=== PATIENT | male | born 1995 | race Caucasian/White ===

== ENCOUNTER 2017-05-12 19:05 | Emergency (ER) | payer OTHER ==
[~2017-05-12] VITALS: Ht 177.8 cm; Wt 88.9 kg
[~2017-05-12 19:05] MED LIST: ZITHROMAX200 MG/51 PO
--- NOTE | 2017-05-12 20:39 | ED GI/GU/ABDOMINAL COMPLAINT ---
History of Present Illness General Chief Complaint: Abdominal Pain/Flank Pain Stated Complaint: PT IS HAVING ABDOMINAL PAIN FOR 2WKDS Source: patient Exam Limitations: no limitations Vital Signs & Intake/Output Vital Signs & Intake/Output Vital Signs Date Time Temp Pulse Resp B/P B/P Pulse O2 O2 Flow FiO2 Mean Ox Delivery Rate 05/12 1926 99.9 73 138/82 98 Allergies Coded Allergies: MDX - Amoxicillin (AMOXICILLIN) (HIVES 02/08/15) Reconcile Medications Hyoscyamine (Levsin) 0.125 MG TABLET 1 TAB PO Q4 PRN ABDOMINAL SPASMS Ondansetron (Zofran Odt) 4 MG TAB.RAPDIS 1 TAB SL TID PRN NAUSEA Triage Note: PT PRESENTS TO THE ER C/O OF ABD PAIN 4/10. PT STATES THAT THIS STARTED 2 WEEKS AGO AND THAT THE PAIN CAN REACH 7/10. PT STATES THAT HE HAS BEEN NAUSEOUS WITH EPISODES OF VOMITTING. LAST BM 2 HOURS AGO. PT STATES THAT THE PAIN IS LOCATED IN MID ABD REGION. Triage Nurses Notes Reviewed? yes Onset: Gradual Duration: week(s): (2) Timing: no prior history Quality/Severity: cramping Severity Numbers: 6 Location: generalized abdomen Radiation: no radiation Activities at Onset: none Prior Abdominal Problems: none Past Sexual History: Unobtainable at this time No Modifying Factors: none HPI: Patient is a 21-year-old male presenting to the emergency department with chief complaint of generalized abdominal comfort, cramping and nausea and vomiting that then intermittent over the past 2 weeks. Patient does admit that I week prior to onset of symptoms patient is trying to change his diet, eating less fast FOOD AND MORE whole foods. Denies any diarrhea. Last bowel movement was about 2 hours prior to arrival. Mom does report the patient reported he had difficulty moving his bowels over the past several days the patient is denying this. Patient reports episode of emesis 3-4 times over the past couple weeks. No change with eating. Denies fevers or chills. No sick contacts. No recent travel. Has not taken anything [id number] to help with symptoms. (Oriana REIS,Janee) Past History Travel History Traveled to [place] past 21 day No Medical History Any Pertinent Medical History? see below for history Neurological: NONE EENT: NONE Cardiovascular: NONE Respiratory: NONE Gastrointestinal: NONE Hepatic: NONE Renal: NONE Musculoskeletal: NONE Psychiatric: NONE Endocrine: NONE Surgical History Surgical History: N Psychosocial History What is your primary language Czech Tobacco Use: Never used Family History Hx Contributory? No (Janee Christina) Review of Systems Review of Systems Constitutional: Reports: no symptoms. Comments Review of systems: See HPI, All other systems negative. Constitutional, no chills fever or weight loss HEENT: No visual changes no sore throat no congestion Cardiovascular: No chest pain ,palpitation , orthopnea or ankle swelling Skin, no jaundice no rashes Respiratory: No dyspnea cough sputum or hemoptysis GI: No diarrhea : No dysuria No hematuria Muscle skeletal: no back pain, no neck pain, Neurologic: No numbness no confusion, no headaches Psych: No stress anxiety or depression,. Heme/endocrine: No bruising no bleeding no polyuria or polydipsia Immunology: No splenectomy or history of AIDS, up-to-date with immunizations (Janee Christina) Physical Exam Physical Exam General Appearance: well developed/nourished, no apparent distress, alert, awake , comfortable Gastrointestinal: normal bowel sounds, soft, tenderness Comments: Well-developed well-nourished person in no acute distress HEENT: Pupils equally round and reactive to light and accommodation. Nose is atraumatic. Neck: NORMAL INSPECTION Back: Nontender, no CVA tenderness. Cardiovascular: Regular rate and rhythms no murmurs rubs or gallops, normal JVP Respiratory: Chest nontender. No respiratory distress.breath sounds clear to auscultation bilaterally Abdomen: Soft, mild diffuse tenderness to palpation more localized in the lower quadrants bilaterally, no rebound or guarding, nondistended, no appreciable organomegaly. Normal bowel sounds. No ascites. Negative obturator sign. Extremity: No edema Neuro: Alert oriented x3 Skin: No appreciable rash on exposed skin, skin is warm and dry. Psych: Mood and affect is normal, memory and judgment is normal. Core Measures ACS in differential dx? No Sepsis Present: No Sepsis Focused Exam Completed? No (Janee Christina) Progress Differential Diagnosis: GASTRITIS, PANCREATITIS, NONSPECIFIC COLITIS, CONSTIPATION, BILIARY COLIC Plan of Care: Orders Procedure Date/time Status URINALYSIS 05/12 2025 Complete LIPASE 05/12 2025 Complete COMPREHENSIVE METABOLIC PANEL 05/12 2025 Complete CBC WITHOUT DIFFERENTIAL 05/12 2025 Complete AMYLASE 05/12 2025 Complete Laboratory Tests 05/12/17 2100: Urine Color YEL, Urine Clarity CLEAR, Urine pH 6.0, Ur Specific [place] 1.025, Urine Protein NEG, Urine Ketones NEG, Urine Nitrite NEG, Urine Bilirubin NEG, Urine Urobilinogen 0.2, Ur Leukocyte Esterase NEG, Ur Microscopic EXAM NOT REQUIRED, Urine Hemoglobin NEG, Urine Glucose NEG 05/12/17 2030: Anion Gap 16, Estimated GFR > 60, BUN/Creatinine Ratio 8.8, Glucose 94, Calcium 10.4 H, Total Bilirubin 0.7, AST 27, ALT 70, Alkaline Phosphatase 58, Total Protein 8.6 H, Albumin 5.1 H, Globulin 3.5, Albumin/Globulin Ratio 1.5, Amylase 46, Lipase 54, CBC w Diff NO MAN DIFF REQ, RBC 5.89, MCV 82.0, MCH 26.9 L, MCHC 32.8 L, RDW 14.4, MPV 8.0, Gran % 67.3, Lymphocytes % 25.1, Monocytes % 5.9, Eosinophils % 1.1, Basophils % 0.6, Absolute Granulocytes 6.1, Absolute Lymphocytes 2.3, Absolute Monocytes 0.5, Absolute Eosinophils 0.1, Absolute Basophils 0.1 Initial ED EKG: none Comments: 05/12/2017 10:09:50 PM patient feeling much improved after IV Toradol, IV Zofran. Patient on has pain. Abdomen is soft. Informed of lab work results. No indication for imaging at this time. Patient will follow up with janiya. This could likely be related to recent diet change. Patient started on Levsin and Zofran for symptomatic treatment. Educated on signs and symptoms to return. (Oriana REIS,Janee) Departure Departure Time of Disposition: 2200 Disposition: HOME OR SELF CARE Condition: Stable Clinical Impression Primary Impression: Abdominal pain Secondary Impressions: Nausea & vomiting Qualifiers: Vomiting type: unspecified Vomiting Intractability: unspecified Qualified Code: R11.2 - Nausea with vomiting, unspecified Referrals: Robert TALAVERA,Mayco Price (PCP/Family) Aparna TALAVERA,Basil Cobb Additional Instructions: Follow-up with gastroenterology if symptoms persist. Increase fluids. Eat a well-balanced diet. Take Levsin and Zofran as prescribed up with abdominal spasms and nausea. Return for any worsening symptoms or concerns. Departure Forms: Customer Survey D/C INS-APPENDICITIS EXCLUSION General Discharge Information Prescriptions: Current Visit Scripts Hyoscyamine (Levsin) 1 TAB PO Q4 PRN ABDOMINAL SPASMS #20 TAB Ondansetron (Zofran Odt) 1 TAB SL TID PRN NAUSEA #10 TAB (Janee Christina) PA/CURRENCY COUNTER Co-Sign Statement Statement: ED Attending supervision documentation- [] I saw and evaluated the patient. I have also reviewed all the pertinent lab results and diagnostic results. I agree with the findings and the plan of care as documented in the PA's/CURRENCY COUNTER's documentation. [X] I have reviewed the ED Record and agree with the PA's/CURRENCY COUNTER's documentation. [] Additions or exceptions (if any) to the PAs/CURRENCY COUNTER's note and plan are summarized below: [] (Richy Vences DO
[2017-05-12 20:41] LABS: ABSOLUTE BASOPHIL COUNT 0.1 /CUMM (0.0-0.2); ABSOLUTE EOSINOPHIL COUNT 0.1 /CUMM (0.0-0.7); ABSOLUTE GRANULOCYTE CT 6.1 /CUMM (1.4-6.5); ABSOLUTE LYMPH COUNT 2.3 /CUMM (1.2-3.4); ABSOLUTE MONOCYTE COUNT 0.5 /CUMM (0.10-0.60); BASOPHIL % 0.6 % (0.0-2.0); EOSINOPHIL % 1.1 % (0-5); GRANULOCYTE % 67.3 % (42.2-75.2); HEMATOCRIT 48.3 % (42-52); MEAN CORPUSCULAR HGB 26.9 PG (27.0-31.0); MEAN CORPUSCULAR HGB CONC 32.8 G/DL (33.0-37.0); PLATELET COUNT 319 /CUMM (130-400); RBC DISTRIBUTION WIDTH 14.4 % (11.5-14.5); RED BLOOD CELL CT 5.89 /CUMM (4.70-6.10)
[2017-05-12] MEDS ORDERED: LEVSIN0.125 M1 PO (22:02)
[2017-05-12] MEDS ORDERED: ZOFRAN ODT4 M1 SL (22:02)
[2017-05-12 22:25] VITALS: BP 124/78
== END 2017-05-12 22:26 ==
LOC: ERH 19:05
PROVIDERS: Physician Assistant
DX: R10.84 Generalized abdominal pain (principal); R11.2 Nausea with vomiting, unspecified
CPT/HCPCS: 81003; 96361; 96374; 96375; J1885; J2405

== ENCOUNTER 2017-05-15 17:45 | Emergency (ER) | payer OTHER ==
[~2017-05-15] VITALS: Ht 177.8 cm; Wt 86.2 kg
[~2017-05-15 17:45] MED LIST changes: +LEVSIN0.125 M1 PO; +ZOFRAN ODT4 M1 SL
--- NOTE | 2017-05-15 18:07 | ED GI/GU/ABDOMINAL COMPLAINT ---
History of Present Illness General Chief Complaint: Abdominal Pain/Flank Pain Stated Complaint: ABD PAIN, +N/V Source: patient, family, old records Exam Limitations: no limitations Vital Signs & Intake/Output Vital Signs & Intake/Output Vital Signs Date Time Temp Pulse Resp B/P B/P Pulse O2 O2 Flow FiO2 Mean Ox Delivery Rate 05/16 1955 78 16 117/74 96 Room Air 05/15 1911 98 Room Air 05/15 1749 98.6 84 18 156/81 98 Room Air ED Intake and Output 05/16 0000 05/15 1200 Intake Total 0 Output Total Balance 0 Intake, IV 0 Patient 190 lb Weight Weight Reported by Patient Measurement Method Allergies Coded Allergies: MDX - Amoxicillin (AMOXICILLIN) (HIVES 02/08/15) Reconcile Medications Hyoscyamine (Levsin) 0.125 MG TABLET 1 TAB PO Q4 PRN ABDOMINAL SPASMS Ondansetron (Zofran Odt) 4 MG TAB.RAPDIS 1 TAB SL TID PRN NAUSEA Sucralfate (Carafate) 1 GRAM/10 ML ORAL.SUSP 10 ML PO TID GASTRITIS 1 hour before food and bedtime Triage Note: 21 YO MALE TO TRIAGE C/O R SIDED ABD/FLANK PAIN AND +VOMTIING. STATES HE WAS SEEN HERE THE OTHER DAY AND SENT HOME WITH SCRIPTS BUT STATES HE IS NO BETTER. DENIES URIANRY S/S. Triage Nurses Notes Reviewed? yes Onset: Gradual Duration: x 1 month Timing: recent history Quality/Severity: moderate (aching) Severity Numbers: 6 Location: generalized abdomen, right upper quadrant Radiation: no radiation Activities at Onset: none No Modifying Factors: none Associated Symptoms: denies HPI: 21-year-old male with no medical history presents to the ER with his mom for evaluation complaining of persistent diffuse however more localized to the left upper and right upper quadrant abdominal pain for the past month associated with intermittent nausea and vomiting. No hematemesis no melena. He denies fever chills. He was seen in this ER for the same pain 3 days ago he was sent home with levsin and Zofran which she states helped for a day however the symptoms returned. No history of abdominal surgeries in the past. No urinary complaints. He does report a recent change in his diet his last bowel movement was today and normal. No black or bloody stools no recent decrease in his appetite. Symptoms are not worse with eating or drinking. He does not smoke (Kareem Parisi) Past History Travel History Traveled to [place] past 21 day No Medical History Any Pertinent Medical History? none Neurological: NONE EENT: NONE Cardiovascular: NONE Respiratory: NONE Gastrointestinal: NONE Hepatic: NONE Renal: NONE Musculoskeletal: NONE Psychiatric: NONE Endocrine: NONE Surgical History Surgical History: N Psychosocial History What is your primary language Faroese Tobacco Use: Never used Family History Hx Contributory? No (Kareem Parisi) Review of Systems Review of Systems Constitutional: Reports: see HPI. Comments Review of systems: See HPI, All other systems negative. Constitutional, no chills no fever, no malaise HEENT: no sore throat no congestion Cardiovascular: No chest pain n Skin: no rashes, no change in skin Respiratory: No dyspnea no cough no sputum no hemoptysis GI: see hpi : No dysuria Muscle skeletal: No joint pain, no back pain Neurologic: , no headache Heme/endocrine: No bruising Immunology: No lymphadenopathy (Kareem Parisi) Physical Exam Physical Exam General Appearance: well developed/nourished, no apparent distress, alert Gastrointestinal: soft, tenderness Comments: Well-developed well-nourished person in no acute distress HEENT: Normal EENT exam; PERRL, EOMI, HEAD is atraumatic. moist mucous membranes. Neck: Supple, normal range of motion Back: Nontender, no CVA tenderness. Full range of motion Cardiovascular: Regular rate and rhythms no murmurs Respiratory: No respiratory distress. Patient speaking in full complete sentences. Breath sounds clear to auscultation bilaterally: NO W/R/R Abdomen: Soft, diffuse tenderness, negative Dent sign nondistended, no appreciable organomegaly. Normal bowel sounds. No rebound/guarding, No ascites. Extremity: No edema, full range of motion of extremities, Neuro: Alert oriented x3, motor sensory normal. There were no obvious focal neurologic abnormalities. Skin: No appreciable rash on exposed skin, skin is warm and dry. No jaundice no diaphoresis Psych: Mood and affect is normal, memory and judgment is normal. Core Measures ACS in differential dx? No Sepsis Present: No Sepsis Focused Exam Completed? No (Kareem Parisi) Progress Differential Diagnosis: appendicitis, biliary colic, bowel obstruction, colon cancer, diverticulitis, gastritis, hepatitis, inflamm bowel dis, pancreatitis, perforated viscous, SBO, ureterolithiasis, UTI/pyelo Plan of Care: Orders Procedure Date/time Status LIPASE 05/15 1833 Complete COMPREHENSIVE METABOLIC PANEL 05/15 1833 Complete CBC WITHOUT DIFFERENTIAL 05/15 1833 Complete Laboratory Tests 05/15/17 1855: Anion Gap 18 H, Estimated GFR > 60, BUN/Creatinine Ratio 12.2, Glucose 80, Calcium 10.8 H, Total Bilirubin 1.0, AST 31, ALT 54, Alkaline Phosphatase 55, Total Protein 8.9 H, Albumin 5.2 H, Globulin 3.7, Albumin/Globulin Ratio 1.4, Lipase 51, CBC w Diff NO MAN DIFF REQ, RBC 5.80, MCV 81.3, MCH 27.2, MCHC 33.5, RDW 13.8, MPV 8.1, Gran % 59.9, Lymphocytes % 31.1, Monocytes % 7.4, Eosinophils % 1.0, Basophils % 0.6, Absolute Granulocytes 4.3, Absolute Lymphocytes 2.2, Absolute Monocytes 0.5, Absolute Eosinophils 0.1, Absolute Basophils 0 Patient is declining anything for pain when offered CAT scan ordered labs ordered he declines anything for nausea On repeat evaluation patient resting in no acute distress again he is declining anything for pain offered he's had no episodes of vomiting in the department. I discussed with the patient at length all of their results. I had an extensive conversation regarding need for close follow up with their primary care physician/as well as GI this week as well as return precautions. I answered all of their questions, they feel comfortable with the plan and follow-up care. I discussed with the patient/family the medications that they will receive. I gave them signs and symptoms that could indicate an adverse reaction. I have advised them to limit their activities until they can see how they respond to the medication. Diagnostic Imaging: Viewed by Me: CT Scan. Discussed w/RAD: CT Scan. Radiology Impression: PATIENT: MICAH MORA PRESENT AGE: 21 PATIENT ACCOUNT NO: [id number] : 97 LOCATION: [facility] ORDERING PHYSICIAN: Kareem REIS SERVICE DATE: 05/15/17-1833 EXAM TYPE: CAT - CT ABD & PELVIS W IV CONTRAST EXAMINATION: CT ABDOMEN AND PELVIS WITH CONTRAST CLINICAL INFORMATION: Right upper quadrant abdominal pain. Nausea and vomiting. COMPARISON: No relevant prior imaging. TECHNIQUE: Multidetector volumetric imaging was performed of the abdomen and pelvis following IV administration of 90 mL of Optiray 320 intravenous contrast. Sagittal and coronal reformatted images were obtained on the technologist's workstation. DLP: 511.11 mGy-cm FINDINGS: LUNG BASES: Lung bases are clear. There is no pleural or pericardial effusion. LIVER, GALLBLADDER, AND BILIARY TREE: Liver attenuation is somewhat heterogeneous. This finding may represent a manifestation of a transient hepatic attenuation difference or perhaps heterogeneous hepatic steatosis. Grossly no intrahepatic or extrahepatic biliary ductal dilatation. The gallbladder is unremarkable with no evidence of radiopaque gallstones, gallbladder wall thickening, or obvious pericholecystic inflammatory changes. PANCREAS: Unremarkable. SPLEEN: Unremarkable. ADRENAL GLANDS: Unremarkable. KIDNEYS AND URETERS: Kidneys demonstrate symmetric nephrographic enhancement characteristics. There is no discrete renal parenchymal mass. No abnormal perinephric inflammation or collection. No hydronephrosis. No worrisome mass or caliber indications visualized along the expected course of the right or left ureter. BLADDER: Unremarkable. GASTROINTESTINAL TRACT: The stomach and small bowel are normal. There is no evidence of obstruction. Colon and appendix are normal. No abnormal perirectal or presacral inflammation. ABDOMINAL WALL: No significant hernia is appreciated. LYMPH NODES: There are a few small nonspecific mesenteric lymph nodes at the ileocecal junction. No bulky adenopathy. VASCULAR: Abdominal aorta and inferior vena cava are normal. PELVIC VISCERA: Unremarkable. OSSEOUS STRUCTURES: There is no acute osseous finding. IMPRESSION: There is no abnormal finding to provide an explanation for the patient's right upper quadrant abdominal pain. The liver demonstrates some nonspecific heterogeneous enhancement characteristics which may either represent a manifestation of a transient hepatic attenuation difference or hepatic steatosis no discrete hepatic parenchymal mass. If there is a clinical concern for acute cholecystitis and a right upper quadrant ultrasound can be obtained for better anatomic characterization of the hepatobiliary system. DICTATED BY: Devyn Armstrong MD DATE/TIME DICTATED:05/15/171936 OVERLOCK WAISTLINE JOINER: JARAD DATE/TIME TRANSCRIBED:05/15/171936 CONFIDENTIAL, DO NOT COPY WITHOUT APPROPRIATE AUTHORIZATION. <Electronically signed in Other Vendor System> SIGNED BY: Devyn Armstrong MD 05/15/171948 Initial ED EKG: none (Moon REIS,Kareem) Departure Departure Time of Disposition: 1955 Disposition: HOME OR SELF CARE Condition: Stable Clinical Impression Primary Impression: Abdominal pain Referrals: Ester TALAVERA,Tano Jones MD,Mayco Price (PCP/Family) Additional Instructions: [place] diet no fatty spicy greasy foods. Clear liquids advance as tolerated Follow-up with your primary care physician as well as materials engineer Dr. Norman. Continue with the Zofran if needed for nausea. Return with any concerns Departure Forms: Customer Survey General Discharge Information Prescriptions: Current Visit Scripts Sucralfate (Carafate) 10 ML PO TID #1200 ML 1 hour before food and bedtime (Kareem Parisi) PA/DIE HARDENER Co-Sign Statement Statement: ED Attending supervision documentation- [] I saw and evaluated the patient. I have also reviewed all the pertinent lab results and diagnostic results. I agree with the findings and the plan of care as documented in the PA's/DIE HARDENER's documentation. [x] I have reviewed the ED Record and agree with the PA's/DIE HARDENER's documentation. [] Additions or exceptions (if any) to the PAs/DIE HARDENER's note and plan are summarized below: [] (Olinda TALAVERA,Dale Price)
[2017-05-15 19:07] LABS: ABSOLUTE BASOPHIL COUNT 0 /CUMM (0.0-0.2); ABSOLUTE EOSINOPHIL COUNT 0.1 /CUMM (0.0-0.7); ABSOLUTE GRANULOCYTE CT 4.3 /CUMM (1.4-6.5); ABSOLUTE LYMPH COUNT 2.2 /CUMM (1.2-3.4); ABSOLUTE MONOCYTE COUNT 0.5 /CUMM (0.10-0.60); BASOPHIL % 0.6 % (0.0-2.0); GRANULOCYTE % 59.9 % (42.2-75.2); HEMATOCRIT 47.2 % (42-52); MEAN CORPUSCULAR HGB 27.2 PG (27.0-31.0); MEAN CORPUSCULAR HGB CONC 33.5 G/DL (33.0-37.0); MEAN CORPUSCULAR VOLUME 81.3 FL (80.0-94.0); MEAN PLATELET VOLUME 8.1 FL (7.4-10.4); PLATELET COUNT 307 /CUMM (130-400); RBC DISTRIBUTION WIDTH 13.8 % (11.5-14.5); WHITE BLOOD CELL COUNT 7.2 /CUMM (4.8-10.8)
--- NOTE | 2017-05-15 19:49 | CT SCAN REPORT ---
EXAMINATION: CT ABDOMEN AND PELVIS WITH CONTRAST CLINICAL INFORMATION: Right upper quadrant abdominal pain. Nausea and vomiting. COMPARISON: No relevant prior imaging. TECHNIQUE: Multidetector volumetric imaging was performed of the abdomen and pelvis following IV administration of 90 mL of Optiray 320 intravenous contrast. Sagittal and coronal reformatted images were obtained on the technologist's workstation. DLP: 511.11 mGy-cm FINDINGS: LUNG BASES: Lung bases are clear. There is no pleural or pericardial effusion. LIVER, GALLBLADDER, AND BILIARY TREE: Liver attenuation is somewhat heterogeneous. This finding may represent a manifestation of a transient hepatic attenuation difference or perhaps heterogeneous hepatic steatosis. Grossly no intrahepatic or extrahepatic biliary ductal dilatation. The gallbladder is unremarkable with no evidence of radiopaque gallstones, gallbladder wall thickening, or obvious pericholecystic inflammatory changes. PANCREAS: Unremarkable. SPLEEN: Unremarkable. ADRENAL GLANDS: Unremarkable. KIDNEYS AND URETERS: Kidneys demonstrate symmetric nephrographic enhancement characteristics. There is no discrete renal parenchymal mass. No abnormal perinephric inflammation or collection. No hydronephrosis. No worrisome mass or caliber indications visualized along the expected course of the right or left ureter. BLADDER: Unremarkable. GASTROINTESTINAL TRACT: The stomach and small bowel are normal. There is no evidence of obstruction. Colon and appendix are normal. No abnormal perirectal or presacral inflammation. ABDOMINAL WALL: No significant hernia is appreciated. LYMPH NODES: There are a few small nonspecific mesenteric lymph nodes at the ileocecal junction. No bulky adenopathy. VASCULAR: Abdominal aorta and inferior vena cava are normal. PELVIC VISCERA: Unremarkable. OSSEOUS STRUCTURES: There is no acute osseous finding. IMPRESSION: There is no abnormal finding to provide an explanation for the patient's right upper quadrant abdominal pain. The liver demonstrates some nonspecific heterogeneous enhancement characteristics which may either represent a manifestation of a transient hepatic attenuation difference or hepatic steatosis no discrete hepatic parenchymal mass. If there is a clinical concern for acute cholecystitis and a right upper quadrant ultrasound can be obtained for better anatomic characterization of the hepatobiliary system.
[2017-05-15 19:56] VITALS: BP 117/74
[2017-05-15] MEDS ORDERED: CARAFATE1 GM/10 M1 PO (19:58)
== END 2017-05-15 20:34 ==
LOC: ERH 17:45
PROVIDERS: Physician Assistant Medical
DX: R10.12 Left upper quadrant pain (principal); R10.11 Right upper quadrant pain
CPT/HCPCS: 74177